=== PATIENT | male | born 1980 | race Caucasian/White ===

== ENCOUNTER 2017-05-29 18:18 | Emergency (ER) | payer OTHER ==
--- NOTE | 2017-05-29 18:28 | PDOC ---
Rapid Medical Evaluation Chief Complaint: Injury Time Seen by Provider: 05/29/17 18:26 Medical Evaluation: 05/29/17 18:27 The patient presents with a chief complaint of: nail through L second and 3rd fingers. No bleeding. Contracter I have performed a brief in-person evaluation of this patient; Pertinent physical exam findings: Nail through L 2nd and 3rd fingers. 2+ L radius. I have ordered the following: X-ray, percocet The patient will proceed to the ED for further evaluation.
[2017-05-29 18:37] VITALS: BP 137/71; PULSE 73; TEMP 98.2; BMI 27.3
[2017-05-29] MEDS ORDERED: DIPHTH,PERTUSS(ACELL),TET 0.5 ML DISP.SYRIN IM ONE (18:45)
--- NOTE | 2017-05-29 19:50 | PDOC ---
History of Present Illness - General History Source: Patient Exam Limitations: No Limitations - History of Present Illness Initial Comments: 05/29/17 20:14 The patient is a 37 year old male with no significant PMH who presents to the emergency department with a nail penetrating his left 2nd and 3rd fingers s/p nail gun accident about 1 hour ago. 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 The patient still has the nail in his fingers upon presentation. The nail penetrates the medial aspect of the left 2nd finger and the lateral aspect of the left 3rd finger. The patient denies any past or active bleeding. The patient is unsure if his Tetanus shot is up to date. The patient denies any history of diabetes. The patient denies any other complaints. Allergies: NKA Past surgical history: None reported. Social history: No reported cigarette, alcohol, or drug use. PCP: None reported. <Davey Wu - Last Filed: 05/29/17 21:07> - General History Source: Patient <David Somers - Last Filed: 05/29/17 22:04> - General Chief Complaint: Injury Stated Complaint: HAND INJURY,Nail through two fingers Time Seen by Provider: 05/29/17 18:26 Past History <Davey Wu - Last Filed: 05/29/17 21:07> - Past Medical History COPD: No - Suicide/Smoking/Psychosocial Hx Smoking History: Never smoked Information on smoking cessation initiated: No Hx Alcohol Use: No Drug/Substance Use Hx: No Substance Use Type: None <David Somers - Last Filed: 05/29/17 22:04> - Past Medical History Allergies/Adverse Reactions: Allergies Allergy/AdvReac Type Severity Reaction Status Date / Time No Known Allergies Allergy Verified 05/29/17 18:30 Home Medications: Ambulatory Orders Amox-Tr/K Cl [Augmentin 875Mg Tablet] 1 tab PO BID #20 tablet 05/29/17 Ibuprofen 800 mg PO TID #30 tablet 05/29/17 Oxycodone HCl/Acetaminophen [Percocet 5-325 mg Tablet] 1 - 2 tab PO Q6H #20 tablet MDD 4 05/29/17 Review of Systems - Review of Systems Able to Perform ROS?: Yes Comments:: 05/29/17 20:14 CONSTITUTIONAL: Absent: fever, no chills, no fatigue EYES: Absent: visual changes ENT: Absent: ear pain, no sore throat CARDIOVASCULAR: Absent: chest pain, no palpitations RESPIRATORY: Absent: cough, no SOB GI: Absent: abdominal pain, no nausea, no vomiting, no constipation, no diarrhea GENITOURINARY: Absent: dysuria, no frequency, no hematuria MUSKULOSKELETAL: (+) Nail penetrating left 2nd and 3rd fingers. Absent: back pain, no arthralgia, no myalgia SKIN: Absent: rash NEURO: Absent: headache <Davey Wu - Last Filed: 05/29/17 21:07> *Physical Exam - Vital Signs Last Vital Signs Temp Pulse Resp BP Pulse Ox 98.2 F 73 19 137/71 98 05/29/17 18:27 05/29/17 18:27 05/29/17 18:27 05/29/17 18:27 05/29/17 18:27 - Physical Exam Comments: 05/29/17 20:15 GENERAL: Well-appearing, well-nourished. No apparent distress. HEENT: Normocephalic, atraumatic. PERRL, EOM intact. CARDIOVASCULAR: Normal S1, S2. Regular rate and rhythm. PULMONARY: Clear to auscultation bilaterally. ABDOMEN: Soft, non-distended, non-tender. EXTREMITIES: (+) Nail puncturing soft tissue of medial aspect of the left 2nd digit and lateral aspect of the left 3rd digit. ROM intact. Sensation intact. No active bleeding. Normal ROM in all four extremities. SKIN: Warm, dry. No rash NEUROLOGICAL: No focal neurological deficits. <Davey Wu - Last Filed: 05/29/17 21:07> - Vital Signs Last Vital Signs Temp Pulse Resp BP Pulse Ox 98.2 F 73 19 137/71 98 05/29/17 18:27 05/29/17 18:27 05/29/17 18:27 05/29/17 18:27 05/29/17 18:27 <David Somers - Last Filed: 05/29/17 22:04> ED Treatment Course - Medications Given in the ED: ED Medications Discontinued Medications Generic Name Dose Route Start Last Admin Trade Name Freq PRN Reason Stop Dose Admin Oxycodone/Acetaminophen 1 combo 05/29/17 18:45 05/29/17 18:34 Percocet 5/325 - PO 05/29/17 18:46 1 combo ONCE ONE Administration <Davey Wu - Last Filed: 05/29/17 21:07> - Medications Given in the ED: ED Medications Discontinued Medications Generic Name Dose Route Start Last Admin Trade Name [place] PRN Reason Stop Dose Admin Oxycodone/Acetaminophen 1 combo 05/29/17 18:45 05/29/17 18:34 Percocet 5/325 - PO 05/29/17 18:46 1 combo ONCE ONE Administration <David Somers - Last Filed: 05/29/17 22:04> Medical Decision Making - Medical Decision Making 05/29/17 21:24 Dr. Somers: The scribe's documentation has been prepared under my direction and personally reviewed by me in its entirery. I confirm that the note above accurately reflects all work, treatment, procedures, and medical decision making performed by me. Pt had nail from hand removed . Patient given local anesthesia to wound sites and digital blocks to 2nd and 3rd digit left hand. wound was then irrigated copiusly with sterile saline and bulky dressing place. Hand was re-xrayed to r/ o fx. <David Somers - Last Filed: 05/29/17 22:04> *DC/Admit/Observation/Transfer - Attestations Scribe Attestion: 05/29/17 20:15 Documentation prepared by Davey Wu, acting as medical aides teacher for David Somers DO. <Davey Wu - Last Filed: 05/29/17 21:07> - Discharge Dispostion Admit: No <David Somers - Last Filed: 05/29/17 22:04> Diagnosis at time of Disposition: Foreign body (FB) in soft tissue - Discharge Dispostion Disposition: HOME Condition at time of disposition: Stable - Prescriptions Prescriptions: Amox-Tr/K Cl [Augmentin 875Mg Tablet] 1 tab PO BID #20 tablet Ibuprofen 800 mg PO TID #30 tablet Oxycodone HCl/Acetaminophen [Percocet 5-325 mg Tablet] 1 - 2 tab PO Q6H #20 tablet MDD 4 - Patient Instructions Printed Discharge Instructions: DI for Removal of Foreign Body From Skin Additional Instructions: Please take medication as directed. Keep wounds clean and dry. Wash with soap and water. Return if any problems. Print Language: [place]
[2017-05-29] MEDS ORDERED: AMPICILLIN NA/SULBACTAM NA 3 GM in SODIUM CHLORIDE 100 ML IVPB ONE (20:27)
[2017-05-29] MEDS ORDERED: CEFAZOLIN 1 GM in DEXTROSE 5%-WATER - 50 ML IVPB ONE (20:32)
[2017-05-29] MEDS ORDERED: CEFAZOLIN 1 GM/D5W 1 GM/50 ML BAG ONE (20:33)
[2017-05-29] MEDS ORDERED: ONDANSETRON 4 MG/2 ML VIAL IVPUSH STA (20:46)
[2017-05-29] MEDS ORDERED: HYDROmorphone HCL CARPU-JECT 1 MG/1 ML DISP.SYRIN IVPUSH ONE (20:46)
[2017-05-29] MEDS ORDERED: LIDOCAINE HCL 1%, 10 MG/ML (50 mL VIAL) SQ ONE (20:46)
[2017-05-29] MEDS ORDERED: LIDOCAINE HCL 1%, 10 MG/ML (20ML VIAL) ONE (20:46)
[2017-05-29] MEDS ORDERED: ONDANSETRON 4 MG/2 ML VIAL ONE (20:47)
[2017-05-29] MEDS ORDERED: HYDROmorphone HCL CARPU-JECT 1 MG/1 ML DISP.SYRIN ONE (20:47)
== END 2017-05-29 22:03 | disposition home or self-care (01) ==
LOC: JER 18:18
PROC: 3E0234Z Introduction of Serum, Toxoid and Vaccine into Muscle, Percutaneous Approach (ICD-10-PCS; principal; 2017-05-29)
PROC: 3E03329 Introduction of Other Anti-infective into Peripheral Vein, Percutaneous Approach (ICD-10-PCS; 2017-05-29)
PROC: 3E033NZ Introduction of Analgesics, Hypnotics, Sedatives into Peripheral Vein, Percutaneous Approach (ICD-10-PCS; 2017-05-29)
PROC: 3E033GC Introduction of Other Therapeutic Substance into Peripheral Vein, Percutaneous Approach (ICD-10-PCS; 2017-05-29)
DX: S61.241A Puncture wound with foreign body of left index finger without damage to nail, initial encounter (principal); S61.243A Puncture wound with foreign body of left middle finger without damage to nail, initial encounter; W29.4XXA Contact with nail gun, initial encounter; Y93.H3 Activity, building and construction; Y92.69 Other specified industrial and construction area as the place of occurrence of the external cause; Y99.0 Civilian activity done for income or pay
CPT/HCPCS: 73130-TC-LT; 90715; 99282-25